=== PATIENT | male | born 1975 | race African-American/Black ===

== ENCOUNTER 2022-07-25 16:47 | Emergency (ER) | payer SELFPAY ==
[~2022-07-25 16:47] MED LIST: Iopamidol 300 61% 100 ML VIAL FS ONE
[2022-07-25 18:02] LABS: Bilirubin Neg (Negative); Blood, Urine Negative (Negative); Clarity Clear (Clear); Glucose, Urine (Dipstick) Normal (Negative); Ketone, Urine Negative (Negative); Leukocyte Negative (Negative); Nitrite Negative (Negative); Protein, Urine (Dipstick) Negative (Neg-Trace); Specific Gravity, Urine 1.015 (1.005-1.030); Urobilinogen Normal mg/dL (Less than 2)
[2022-07-25 18:07] LABS: ALT (SGPT) 42 U/L (8-55); AST (SGOT) 34 U/L (5-34); Albumin 4.1 g/dL (3.5-5.0); Alkaline Phosphatase 48 U/L (40-110); Anion Gap 13 mmol/L (10-20); BUN (Urea Nitrogen) 17 mg/dL (8.9-20.6); Bilirubin, Total 0.5 mg/dL (0.2-1.2); Calc. Creatinine Clearance 0 mL/min (70-130); Calcium 9.1 mg/dL (7.8-10.44); Carbon Dioxide 24 mmol/L (22-29); Chloride 108 mmol/L (98-107); Estimated GFR 80; Globulin 3.2 g/dL (2.4-3.5); Glucose 91 mg/dL (70-105); Lipase 27 U/L (8-78); Potassium 4.4 mmol/L (3.5-5.1); Protein, Total 7.3 g/dL (6.0-8.3); Sodium 141 mmol/L (136-145)
[2022-07-25 18:16] LABS: Hemoglobin 15.5 g/dL (13.5-17.5); Mean Corpuscular HGB CONC 32.7 g/dL (32.0-36.0); Mean Corpuscular Hemoglobin 29.7 pg (27.0-33.0); Mean Corpuscular Volume 90.8 fl (81.2-95.1); Mean Platelet Volume 10.7 fl (7.4-10.4); Platelet Count 321 10x3/uL (150-450); RBC Distribution Width 12.4 % (11.5-14.5); Red Blood Cell (RBC) Count 5.22 10x6/uL (4.32-5.72); White Blood Cell (WBC) Count 5.5 10x3/uL (3.5-10.5)
[2022-07-25 18:17] LABS: MDiff Complete? YES; Manual Diff?? YES
[2022-07-25 18:21] LABS: Lymphocytes 51 % (21-51); Monocytes 10 % (0-10); Neutrophil 34 % (42-75); Reactive Lymphocytes 5 % (0-10)
[2022-07-25 18:22] LABS: Platelet Morphology Comment Appears Adequate
[2022-07-25] MEDS ORDERED: Ketorolac Tromethamine 30 MG/ML VIAL ONE (18:23)
[2022-07-25 18:24] LABS: RBC Morphology Normal
== END 2022-07-25 19:09 | disposition home or self-care (01) ==
LOC: CSHERS 16:47
DX: N43.3 Hydrocele, unspecified (principal)
CPT/HCPCS: 74177; 80053; 81003; 83690; 85025; 96374; J1885; Q9967